=== PATIENT | male | born 1985 | race Two or more races ===

== ENCOUNTER 2022-10-04 22:52 | Emergency (ER) | payer OTHER ==
[2022-10-04] MEDS ORDERED: Orphenadrine 100 MG Tab.ER PO STA (23:57)
== END 2022-10-05 01:21 | disposition home or self-care (01) ==
LOC: JD.ED 22:52
DX: S39.012A Strain of muscle, fascia and tendon of lower back, initial encounter (principal); E66.9 Obesity, unspecified; Z68.41 Body mass index [BMI] 40.0-44.9, adult; V59.49XA Driver of pick-up truck or van injured in collision with other motor vehicles in traffic accident, initial encounter; Y92.410 Unspecified street and highway as the place of occurrence of the external cause
CPT/HCPCS: 71046; 72100; 99284; A9270